=== PATIENT | male | born 1960 | race Caucasian/White ===

== ENCOUNTER 2021-03-05 00:43 | Inpatient (IN) | payer MEDICARE, OTHER ==
[~2021-03-05] VITALS: Ht 172.7 cm; Wt 58.1 kg
[2021-03-05] MEDS ORDERED: CLONIDINE HCL 0.1 MG TABLET PO ONE (01:15)
--- NOTE | 2021-03-05 01:15 | NUR ---
x-ray at bedside
--- NOTE | 2021-03-05 01:20 | NUR ---
Gave report to MHU nurse Geri
--- NOTE | 2021-03-05 01:22 | NUR ---
Patient is resting comfortably in bed with eyes closed, bed in lowest position.
[2021-03-05] MEDS ORDERED: RISP0.5T5 PO (01:26)
[2021-03-05] MEDS ORDERED: CLONIDINE HCL 0.1 MG TABLET ONE (01:35)
--- NOTE | 2021-03-05 02:20 | NUR ---
Pt. admitted to MHU , under care of Dr. Carlos Huff and Dr. Simeon Dx: psychosis 5150 Belongs List completed Pt stable, cooperative, no SOB or labored breathing, afebrile.
[2021-03-05] MEDS ORDERED: BLOOD SUGAR DIAGNOSTIC 1 EACH STRIP VI ONE (03:15)
[2021-03-05] MEDS ORDERED: MAGNESIUM HYDROXIDE 30 ML LIQUID UDC PO PRN (03:15)
--- NOTE | 2021-03-05 03:17 | NUR ---
GPS: Admitted to unit earlier a 60 yr.old male under the care of /ROGER Huff. Pt.is on a 72 hour hold for DTS/DTO. Pt.is homeless and apparently he was found wandering in other strangers homes,shouting and was agitated. Pt.is disheveled,confused,disorganized and delusional. Refuses to answer questions during admission process. Sedated but arousable to touch. VSS. Pt's advisement and pt's rights booklet given. Re-directed prn. Unit rules will be explained. Fall precautions observed.
[2021-03-05 04:04] LABS: *BILIRUBIN,URIN NEGATIVE (NEGATIVE); *BLOOD, URINE NEGATIVE (NEGATIVE); *CLARITY,URINE CLEAR (CLEAR); *COLOR,URINE YELLOW (YELLOW); *KETONES,URINE NEGATIVE (NEGATIVE); LEUKOCYTE ESTERASE ,URINE NEGATIVE (NEGATIVE); NITRITE, URINE NEGATIVE (NEGATIVE); UGLUCOSE NEGATIVE (NEGATIVE)
[2021-03-05 04:15] LABS: BACTERIA,URINE NONE SEEN /HPF (NONE SEEN); RBC,URINE 0-3 /HPF (0-3); SQUAMOUS EPITHELIAL CELL,UR NONE SEEN /HPF (NONE SEEN); WBC,URINE 0-3 /HPF (0-3)
[2021-03-05 06:23] VITALS: BP 135/96
[2021-03-05 07:30] VITALS: BP 124/85
--- NOTE | 2021-03-05 08:22 | NUR ---
Firearms Report: Semiconductor Wafers Etcher Stripper completed and submitted a [employer] firearms report for 5150 grave disability certification. A copy of report has been placed in patient chart.
[2021-03-05] MEDS: NICOTINE 14 MG/24HR PATCH TD SCH (09:18)
--- NOTE | 2021-03-05 09:51 | NUR ---
SW Initial Discharge Note: Patient appears to be homeless. Patient has one personal service representative listed Maria Isabel Jessie ([phone]). SW contacted and left a voicemail to collect collateral information. Patient may need SNF placement upon discharge. SW will continue to work with patient, family, and MD to ensure a safe and proper discharge plan.
--- NOTE | 2021-03-05 09:51 | NUR ---
MIGUE Collateral Contact: Patient has one contact centre supervisor listed Maria Isabel Roman ([phone]). SW contacted and left a voicemail to collect collateral information.
--- NOTE | 2021-03-05 09:52 | NUR ---
Brief Substance Abuse Intervention: Patient was provided with a brief substance abuse intervention fr alcohol use, cigarettes, marijuana, and crystal meth and referred to the following substance abuse programs: [facility] Self[facility]pl[facility] ([phone]); [facility] [address] [place] [address] ([phone]); [address] [address] ([phone]); [facility] ([phone]); [facility] ([phone]); [facility] ([phone]); [facility] ([phone]).
--- NOTE | 2021-03-05 11:46 | NUR ---
Treatment Plan: SW discussed treatment and discharge plan with the patient upon long term care social worker assessment. Patient demonstrated aggressive behavior and refused to sign treatment plan.
[2021-03-05] MEDS: risperiDONE 1 MG TABLET PO SCH ×2 (13:00→17:13)
[2021-03-05] MEDS ORDERED: OLANZAPINE 10 MG VIAL IM ONE (13:15)
[2021-03-05 16:35] VITALS: BP 102/68
[2021-03-05 20:09] VITALS: BP 130/65
--- NOTE | 2021-03-05 20:59 | NUR ---
resting in bed upon initial rounds. AAO x3-4 needs attended. VSS. No acute distress noted. ambulatory. Continent of bowel and bladder. No behavioral issues noted. No aggressive behavior or agitation noted. Will monitor patient.
[2021-03-06] MEDS: ZOLPIDEM 5 MG TABLET PO PRN ×2 (01:10→23:38)
[2021-03-06] MEDS: LORAZEPAM 1 MG TABLET PO PRN (01:59)
--- NOTE | 2021-03-06 06:26 | NUR ---
End of shift notes: Had 4 1/2 hrs of sleep. Was medicated earlier this am with Ativan plus ambien. No aggresive behavior so far.
[2021-03-06 07:30] VITALS: BP 150/94
[2021-03-06] MEDS: risperiDONE 1 MG TABLET PO SCH ×2 (08:48→16:37)
[2021-03-06] MEDS: NICOTINE 14 MG/24HR PATCH TD SCH (08:48)
--- NOTE | 2021-03-06 09:41 | NUR ---
WOUND CARE CONSULT: PT PRESENTS AMBULATORY AND CONTINENT WITH DRY ABRASIONS ON UPPER EXTREMITIES, PRESENT ON ADMISSION. NO DRAINAGE, TENDERNESS OR ERYTHEMA NOTED. WILL SEE PRN.
--- NOTE | 2021-03-06 14:32 | NUR ---
MIGUE Individual Therapy Note: SW met with patient today for brief individual counseling and addressed patient's presenting problem depressed mood. Patient presents with irritable mood and congruent affect. Patient is observed laying in bed and refusing to engage in conversation. Patient stated, "Go away". MIGUE was unable to conduct a meaningful intervention at this time as patient is not cooperative. will continue to remain available for patient for ongoing continuous support.
[2021-03-06 16:21] VITALS: BP 147/92
--- NOTE | 2021-03-06 17:01 | NUR ---
patient calm , patients verbalizing that he needs to go because he has a job to do, patient telling the tech writer that the MD already discharge him, patient re orient regarding the Hold patient been compliant with medication, monitored [id number] , no sign of distress
--- NOTE | 2021-03-07 05:38 | NUR ---
GPS: Remain calm and cooperative with meds and care. patient was unable to sleep. Ambien 5 mg po given for sleep last night.assisted with adl's. kept clean and dry. No aggressive behavior noted at this time. Resting in bed comfortably.
--- NOTE | 2021-03-07 05:50 | NUR ---
patient slept 6 hrs through the night.
[2021-03-07 07:02] LABS: BASOPHILS % (AUTO) 0.7 % (0.0-2.0); EOSINOPHILS % (AUTO) 1.1 % (0.0-7.0); HEMOGLOBIN 12.8 g/dL (12.5-16.3); LYMPHOCYTES # (AUTO) 0.9 K/uL (20.0-40.0); LYMPHOCYTES % (AUTO) 27.5 % (20.5-51.5); MEAN CORPUSCULAR HEMOGLOBIN 30.7 uug (23.8-33.4); MEAN CORPUSCULAR HGB CONC 33 g/dL (32.5-36.3); MEAN CORPUSCULAR VOLUME 93.3 fL (73.0-96.2); MONOCYTES # (AUTO) 0.2 K/uL (2.0-10.0); MONOCYTES % (AUTO) 7.1 % (0.0-11.0); NEUTROPHILS # (AUTO) 2.2 K/uL (1.8-8.9); NEUTROPHILS % (AUTO) 63.6 % (38.5-71.5); PLATELET COUNT (AUTO) 126 K/uL (152-348); RED BLOOD CELL COUNT(AUTO) 4.18 MIL/uL (4.06-5.63); WHITE BLOOD COUNT (AUTO) 3.4 K/uL (3.6-10.2)
[2021-03-07 07:09] LABS: BILIRUBIN,DIRECT 0.2 mg/dL (0.0-0.2); BILIRUBIN,TOTAL 0.5 mg/dL (0.2-1.0); TOTAL PROTEIN, SERUM 6.8 g/dL (6.4-8.2)
[2021-03-07 07:12] LABS: MAGNESIUM 1.9 mg/dL (1.8-2.4)
[2021-03-07 08:06] VITALS: BP 113/57
[2021-03-07] MEDS: risperiDONE 1 MG TABLET PO SCH ×2 (08:15→16:50)
[2021-03-07] MEDS: NICOTINE 14 MG/24HR PATCH TD SCH (08:16)
[2021-03-07] MEDS: LORAZEPAM 1 MG TABLET PO PRN (11:05)
[2021-03-07] MEDS: ENSURE ENLIVE (VAN) 240 ML LIQUID PO SCH ×2 (12:29→16:50)
--- NOTE | 2021-03-07 13:27 | NUR ---
Received patient AOx2-3, patient calm anc cooperative, redirectable, compliant with medication, assisted with ADL, denies SI and HI, patient verblizes that he needs to go to work, discuss with patient regarding his hold, patient isolative , monitored [id number] for safety and elopement risk, no sign of distress at this time
[2021-03-07 16:13] VITALS: BP 106/64
[2021-03-07 20:00] VITALS: BP 127/76
[2021-03-08] MEDS: ACETAMINOPHEN 325 MG TABLET PO PRN (02:51)
--- NOTE | 2021-03-08 03:00 | NUR ---
patient c/o genPain. tylenol 650 mg po given.
--- NOTE | 2021-03-08 04:00 | NUR ---
patient stated i am feeling better now.prn effective for pain.
--- NOTE | 2021-03-08 05:57 | NUR ---
GPS: Remain calm and cooperative with meds and care. patient was unable to sleep. patient was c/o gen: pain @ 0300 am tylenol 650 mg po given and effective. took shower this morning. slept 7 hrs through the night.. kept clean and dry. No aggressive behavior noted at this time. Resting in bed comfortably.
[2021-03-08 07:30] VITALS: BP 104/68
[2021-03-08] MEDS: risperiDONE 1 MG TABLET PO SCH ×2 (08:06→16:53)
[2021-03-08] MEDS: NICOTINE 14 MG/24HR PATCH TD SCH (08:06)
[2021-03-08] MEDS: ENSURE ENLIVE (VAN) 240 ML LIQUID PO SCH ×3 (08:07→16:53)
[2021-03-08] MEDS ORDERED: OLANZAPINE 10 MG VIAL IM ONE (09:45)
--- NOTE | 2021-03-08 09:45 | NUR ---
patient is confused and incoherent ,blocking unit door with blanket un able to follow direction and become agitated and aggressive yelling at nurse . Dr. Tejeda notified with Zyprexa 10 mg IM given.
[2021-03-08 15:07] VITALS: BP 129/75
[2021-03-08 20:03] VITALS: BP 126/72
--- NOTE | 2021-03-08 21:00 | NUR ---
RECEIVED PATIENT IN HIS ROOM IN BED. HE IS NOTED AWAKE A/O X 1. HE IS NOTED HYPERVERBAL, EASILY IRRITABLE, CONFRONTATIONAL AND ARGUMENTATIVE HE IS HARD TO REDIRECT. HE IS FIXED ON BEING DISCHARGE TODAY. HE THINKS IS DAY TIME. HE STATED, "THEY ARE WAITING FOR ME OUTSIDE, YOU CAN'T KEEP ME HERE, I NEED TO GO NOW". PATIENT NOTED WITH POOR INSIGHT THE JUDGMENT TO THE REASON FOR HIS ADMISSION TO MHU. HE REQUIRED REDIRECTION AND REASSURANCE. PO FLUIDS AND SNACKS WERE PROVIDED. V/S STABLE. PATIENT IS REASSURED FOR HIS SAFETY. SAFETY AND FALL PRECAUTION IN PLACE. PT IS AWOL RISK. CONTINUE TO MONITOR CLOSELY. PATIENT DENIED SI. HE IS ABLE TO VERBALLY CFS. CONTINUE Q15 MIN CHECKS.
[2021-03-08] MEDS: LORAZEPAM 1 MG TABLET PO PRN (23:26)
--- NOTE | 2021-03-08 23:30 | NUR ---
PATIENT NOTED IRRITABLE AND ARGUMENTATIVE, "I NEED TO LEAVE RIGHT NOW, WHY YOU ARE STILL KEEPING ME HERE?" PATIENT REQUIRED MULTIPLE REDIRECTION. ATIVAN 1MG PO PRN WAS GIVEN FOR ANXIETY AND AGITATION WILL CONTINUE TO MONITOR,
--- NOTE | 2021-03-09 00:30 | NUR ---
PATIENT NOTED SLEEPING IN HIS ROOM IN BED. WILL CONTINUE TO MONITOR.
[2021-03-09 07:30] VITALS: BP 106/60
[2021-03-09] MEDS: risperiDONE 1 MG TABLET PO SCH ×2 (08:09→17:20)
[2021-03-09] MEDS: NICOTINE 14 MG/24HR PATCH TD SCH (08:09)
[2021-03-09] MEDS: ENSURE ENLIVE (VAN) 240 ML LIQUID PO SCH ×3 (08:09→17:22)
[2021-03-09] MEDS: LORAZEPAM 1 MG TABLET PO PRN ×2 (10:01→22:20)
--- NOTE | 2021-03-09 10:05 | NUR ---
Pt banging on his table. Pt upset yelling at staff and states that he needs to go to work. Reorientation and re direction done. Explained to pt that he is in the hospital. Prior intervention of decreasing stimuli is non effective. Ativan given for agitation.
--- NOTE | 2021-03-09 11:00 | NUR ---
Pt sleeping noted resp @17 breathes /min. Will continue to monitor patient.
--- NOTE | 2021-03-09 12:00 | NUR ---
Pt awake eating his lunch. Pt alert to name and time. Reoriented pt to place explained to patient that he is here at [facility] MHU department. Pt denies any SI and HI. Noted wounds on bilteral elbows and skin tare on left hand. Pt refused for wounds to be cleansed. "Leave my wounds alone"
[2021-03-09 15:07] VITALS: BP 136/79
--- NOTE | 2021-03-09 20:00 | NUR ---
received patient in his room. he is noted sleeping in his bed but easily arousable. patient noted A/O x 1. calm upon approached. Mood is Labile, affect is blunted. He denied SI. and he is able to verbally CFS. Patient has no schedule HS medication. He is reassured for his safety. safety and fall precaution in place. will continue to monitor.
[2021-03-09 20:14] VITALS: BP 126/72
[2021-03-09] MEDS: MAG HYDROX/AL HYDROX/SIMETH 30 ML LIQUID UDC PO PRN (22:14)
--- NOTE | 2021-03-09 22:25 | NUR ---
patient approached the nursing station, he stated, "I feel boated, gas". Mylanta PO PRN was given. then he stated, "I feel I have bugs in my hand, I need antibiotics, look at my wounds?" patient was reassured that his wounds on his left hand and elbows are healing really well since his admission and no signs of infection are visible at this time. He also continue stating the he wants to go home (according to medical records, patient is homeless) He was given Ativan 1mg PO PRN for anxiety. PO fluids and snacks were offered. will continue to monitor.
--- NOTE | 2021-03-10 06:55 | NUR ---
patient slept for approx. 6.30 hrs through the night. he is noted less irritable. Will continue to monitor.
[2021-03-10 07:07] LABS: EOSINOPHILS % (AUTO) 1.2 % (0.0-7.0); HEMATOCRIT 37.8 % (36.7-47.1); HEMOGLOBIN 12.5 g/dL (12.5-16.3); LYMPHOCYTES % (AUTO) 32.2 % (20.5-51.5); MEAN CORPUSCULAR HEMOGLOBIN 31.4 uug (23.8-33.4); MEAN CORPUSCULAR HGB CONC 33 g/dL (32.5-36.3); MEAN CORPUSCULAR VOLUME 95.1 fL (73.0-96.2); MONOCYTES # (AUTO) 0.3 K/uL (2.0-10.0); MONOCYTES % (AUTO) 8.8 % (0.0-11.0); NEUTROPHILS # (AUTO) 1.7 K/uL (1.8-8.9); NEUTROPHILS % (AUTO) 56.8 % (38.5-71.5); PLATELET COUNT (AUTO) 114 K/uL (152-348); RED BLOOD CELL COUNT(AUTO) 3.98 MIL/uL (4.06-5.63); WHITE BLOOD COUNT (AUTO) 3.1 K/uL (3.6-10.2)
[2021-03-10 07:22] LABS: CARBON DIOXIDE 30 mmol/L (21-32); CHLORIDE 101 mmol/L (98-107); CREATININE 0.6 mg/dL (0.6-1.3); GLUCOSE 128 mg/dL (74-106); PHOSPHOROUS 3.4 mg/dL (2.5-4.9); POTASSIUM 4.3 mmol/L (3.5-5.1); UREA NITROGEN, BLOOD 17 mg/dL (7-18)
[2021-03-10 07:30] VITALS: BP 124/66
[2021-03-10] MEDS: ENSURE ENLIVE (VAN) 240 ML LIQUID PO SCH ×3 (08:32→17:04)
[2021-03-10] MEDS: NICOTINE 14 MG/24HR PATCH TD SCH (08:33)
[2021-03-10] MEDS: risperiDONE 1 MG TABLET PO SCH (08:33)
[2021-03-10] MEDS ORDERED: risperiDONE 1 MG TABLET PO ONE (09:00)
--- NOTE | 2021-03-10 09:00 | NUR ---
Pt alert and oriented x 4. Pt denies any c/o pain, no hallucinations noted, and denies any suicidal ideations. Pt compliant on taking his AM medications.
--- NOTE | 2021-03-10 09:23 | NUR ---
MIGUE SNF Referral: MIGUE faxed patient's referral packet to [facility] (F [phone]) for review and possible placement attention to [facility].
[2021-03-10] MEDS: NEOMY/BACITRAC/POLYMI OINT 28.35 GM TUBE TOP SCH ×2 (09:27→17:04)
--- NOTE | 2021-03-10 11:03 | NUR ---
Court Hearing: Patient's court hearing for 6740 was today and it was upheld for GD.
--- NOTE | 2021-03-10 11:54 | NUR ---
WOUND CARE CONSULT: PT PRESENTS WITH ELBOW ABRASIONS, PRESENT ON ADMISSION WHICH ARE NOW OPEN. CONCUR WITH CURRENT TREATMENT. DISCUSSED WITH NURSING STAFF. IN AGREEMENT WITH PLAN OF CARE. Addendum: 03/10/21 at 1633 by BETHANY RICO RN WOUND CARE NURSE ACCIDENTALLY USED MY USER NAME. Addendum: 03/11/21 at 0892 by AYUSH FIORE RN PLEASE DISREGARD ABOVE WOUND CARE NOTE WHICH WAS DONE BY AYUSH FIORE INTELLIGENCE CLERK (PRODUCTION GENERALIST) ON INCORRECT COMPUTER.
--- NOTE | 2021-03-10 15:30 | NUR ---
MIGUE Individual Therapy Note: SW met with patient today for brief individual counseling and address patient's presenting problem depressed mood. Patient appeared to be sleeping and did not want o be disturbed. SW encouraged patient to join daily activities in the dining room and join at least one group daily. SW will remain available for patient for ongoing and continued support.
[2021-03-10 15:45] VITALS: BP 117/75
[2021-03-10] MEDS: MAG HYDROX/AL HYDROX/SIMETH 30 ML LIQUID UDC PO PRN (17:04)
[2021-03-10] MEDS: risperiDONE 2 MG TABLET PO SCH (17:04)
--- NOTE | 2021-03-10 18:47 | NUR ---
Covered jayde elbow with band aid as instructed by Wound care nurse. Pt cooperative on taking his pills today.
[2021-03-10 20:04] VITALS: BP 124/74
--- NOTE | 2021-03-11 06:26 | NUR ---
Patient calm and cooperative. Slept about 7.45 hrs.
[2021-03-11 07:30] VITALS: BP 117/75
[2021-03-11] MEDS: risperiDONE 2 MG TABLET PO SCH ×2 (08:35→17:43)
[2021-03-11] MEDS: NICOTINE 14 MG/24HR PATCH TD SCH (08:35)
[2021-03-11] MEDS: NEOMY/BACITRAC/POLYMI OINT 28.35 GM TUBE TOP SCH ×2 (08:36→17:43)
--- NOTE | 2021-03-11 08:55 | NUR ---
WOUND CARE CONSULT (LATE ENTRY): PT SEEN ON 03/10/21 FOR BILATERAL ELBOW ABRASIONS WHICH WERE PRESENT ON ADMISSION AND ARE NOW OPEN. CONCUR WITH CURRENT TREATMENT. DISCUSSED WITH NURSING STAFF. Bernadine Arreola IN AGREEMENT WITH PLAN OF CARE.
[2021-03-11] MEDS: ENSURE ENLIVE (VAN) 240 ML LIQUID PO SCH ×3 (09:23→17:44)
[2021-03-11] MEDS: LORAZEPAM 1 MG TABLET PO PRN (13:15)
[2021-03-11] MEDS: ACETAMINOPHEN 325 MG TABLET PO PRN (13:56)
[2021-03-11] MEDS: MAG HYDROX/AL HYDROX/SIMETH 30 ML LIQUID UDC PO PRN (15:23)
[2021-03-11 16:02] VITALS: BP 95/44
[2021-03-11 20:04] VITALS: BP 120/70
--- NOTE | 2021-03-12 06:04 | NUR ---
GPS: Remain calm and cooperative with meds and care. slept 8.45 hrs through the night. Assisted with adl's. kept clean and dry. No aggressive behavior noted at this time. Resting in bed comfortably.
[2021-03-12 07:30] VITALS: BP 109/68
[2021-03-12] MEDS: ENSURE ENLIVE (VAN) 240 ML LIQUID PO SCH ×3 (09:45→17:47)
[2021-03-12] MEDS: NICOTINE 14 MG/24HR PATCH TD SCH (09:45)
[2021-03-12] MEDS: risperiDONE 2 MG TABLET PO SCH ×2 (09:45→17:46)
[2021-03-12] MEDS: NEOMY/BACITRAC/POLYMI OINT 28.35 GM TUBE TOP SCH ×2 (09:46→17:00)
[2021-03-12] MEDS: LORAZEPAM 1 MG TABLET PO PRN (10:38)
--- NOTE | 2021-03-12 13:21 | NUR ---
SW Note: This SW met with patient and discussed discharge plan. This SW offered nursing facility options, however, pt refused. Pt stated that he wants to be discharged to the streets and would want to go to a fpc. SW will coordinate this.
[2021-03-12] MEDS: BENZTROPINE MESYLATE 1 MG TABLET PO SCH ×2 (14:40→20:50)
[2021-03-12 16:17] VITALS: BP 129/77
[2021-03-12] MEDS: ACETAMINOPHEN 325 MG TABLET PO PRN (17:46)
[2021-03-12] MEDS: DIVALPROEX 250 MG TABLET.DR PO SCH (17:46)
[2021-03-12] MEDS: MAG HYDROX/AL HYDROX/SIMETH 30 ML LIQUID UDC PO PRN (17:53)
[2021-03-12 20:28] VITALS: BP 118/72
--- NOTE | 2021-03-13 05:39 | NUR ---
GPS: Remain calm and cooperative with meds and care. Assisted with adl's. kept clean and dry. No aggressive behavior noted at this time. took shower this morning.Resting in bed comfortably.
--- NOTE | 2021-03-13 06:10 | NUR ---
SLEPT 6 HRS THROUGH THE NIGHT.
[2021-03-13 07:30] VITALS: BP 137/77
[2021-03-13] MEDS: DIVALPROEX 250 MG TABLET.DR PO SCH ×3 (08:27→16:08)
[2021-03-13] MEDS: risperiDONE 2 MG TABLET PO SCH ×2 (08:27→16:08)
[2021-03-13] MEDS: BENZTROPINE MESYLATE 1 MG TABLET PO SCH ×2 (08:27→16:08)
[2021-03-13] MEDS: ENSURE ENLIVE (VAN) 240 ML LIQUID PO SCH ×3 (08:27→16:09)
[2021-03-13] MEDS: NICOTINE 14 MG/24HR PATCH TD SCH (08:27)
[2021-03-13] MEDS: NEOMY/BACITRAC/POLYMI OINT 28.35 GM TUBE TOP SCH ×2 (08:28→16:10)
[2021-03-13] MEDS: MAG HYDROX/AL HYDROX/SIMETH 30 ML LIQUID UDC PO PRN (12:46)
[2021-03-13] MEDS: ACETAMINOPHEN 325 MG TABLET PO PRN (15:37)
[2021-03-13] MEDS: LORAZEPAM 1 MG TABLET PO PRN (16:33)
--- NOTE | 2021-03-13 17:32 | NUR ---
RECEIVED PATIENT CALM COOPERATIVE, DENIES SI AND HI, PATIENT INCREASED IN APPETITE , COMPLIANT WITH MEDICATION, ENGAGE IN MEANINGFUL CONVERSATION, PATIENT DISCUSS PLAN ON HIS DISCHARGE, MONITORED [id number] NO SIGN OF DISTRESS
[2021-03-13 17:52] VITALS: BP 120/71
[2021-03-13 20:25] VITALS: BP 114/68
--- NOTE | 2021-03-13 20:30 | NUR ---
received patient in his room in bed. he is noted sleeping but easily arousable. patient noted a/o x 3. he is calm and pleasant upon approached. he is noted less irritable less anxious. able to maintain good eye contact. able to make his needs known. he is able to accept care. he denied SI and he is able to CFS. V/S stable. patient was given snacks and PO fluids. he is eating 100% of all his meals. patient is reassured for his safety. safety and fall precaution in place. will continue to monitor.
--- NOTE | 2021-03-14 06:13 | NUR ---
Patient slept for approx 7.00 hrs through the night. pt is able to comply with medication regiment diet and plan of care. will continue to monitor.
[2021-03-14 08:24] VITALS: BP 116/71
[2021-03-14] MEDS: DIVALPROEX 250 MG TABLET.DR PO SCH ×3 (08:39→16:22)
[2021-03-14] MEDS: risperiDONE 2 MG TABLET PO SCH ×2 (08:39→16:22)
[2021-03-14] MEDS: BENZTROPINE MESYLATE 1 MG TABLET PO SCH ×2 (08:39→16:23)
[2021-03-14] MEDS: ENSURE ENLIVE (VAN) 240 ML LIQUID PO SCH ×3 (08:46→17:31)
[2021-03-14] MEDS: NICOTINE 14 MG/24HR PATCH TD SCH (08:46)
[2021-03-14] MEDS: NEOMY/BACITRAC/POLYMI OINT 28.35 GM TUBE TOP SCH ×2 (08:55→16:28)
[2021-03-14] MEDS: ACETAMINOPHEN 325 MG TABLET PO PRN (14:26)
[2021-03-14 17:17] VITALS: BP 121/65
[2021-03-14] MEDS: CLONAZEPAM 0.5 MG TABLET PO PRN (17:42)
--- NOTE | 2021-03-14 18:39 | NUR ---
Patient calm and cooperative. No signs of acute distress. Denies SI/ HI. Denies pain/ discomfort. Patient compliant with medication and care. Frequent patient rounding for safety. Needs met. Safety measures provided. Will endorse to incoming shift for continuity of care.
--- NOTE | 2021-03-14 20:30 | NUR ---
RECEIVED PATIENT IN HIS ROOM IN BED. HE IS NOTED AWAKE A/O X 2. HE IS NOTED CALM AND PLEASANT UPON APPROACHED. PATIENT ABLE TO VERBALIZED FEELINGS AND ABLE TO MAKE HIS NEEDS KNOWN. PATIENT ABLE TO COMPLY WITH MEDICATION REGIMENT DIET AND PLAN OF CARE.
--- NOTE | 2021-03-14 20:35 | NUR ---
V/S STABLE. PATIENT IS REASSURED FOR HIS SAFETY. SAFETY AND FALL PRECAUTION IN PLACE. WILL CONTINUE TO MONITOR.
[2021-03-14 21:59] VITALS: BP 100/57
[2021-03-14] MEDS: MAG HYDROX/AL HYDROX/SIMETH 30 ML LIQUID UDC PO PRN (23:19)
[2021-03-14] MEDS: ZOLPIDEM 5 MG TABLET PO PRN (23:19)
[2021-03-15 07:30] VITALS: BP 121/80
[2021-03-15] MEDS: BENZTROPINE MESYLATE 1 MG TABLET PO SCH ×2 (09:04→16:34)
[2021-03-15] MEDS: DIVALPROEX 250 MG TABLET.DR PO SCH ×3 (09:04→16:33)
[2021-03-15] MEDS: NICOTINE 14 MG/24HR PATCH TD SCH (09:05)
[2021-03-15] MEDS: ENSURE ENLIVE (VAN) 240 ML LIQUID PO SCH ×3 (09:05→17:34)
[2021-03-15] MEDS: NEOMY/BACITRAC/POLYMI OINT 28.35 GM TUBE TOP SCH ×2 (09:05→16:34)
[2021-03-15] MEDS: risperiDONE 2 MG TABLET PO SCH ×2 (09:05→16:33)
[2021-03-15] MEDS: CLONAZEPAM 0.5 MG TABLET PO PRN (14:39)
[2021-03-15 16:00] VITALS: BP 130/80
--- NOTE | 2021-03-15 18:55 | NUR ---
Patient awake in bed. Calm and cooperative. No signs of acute distress. Vital signs stable. Compliant with medications and care. Able to make needs known. Shows increased oral intake. Frequent patient rounding for safety. Will endorse to incoming shift for continuity of care.
[2021-03-15 20:08] VITALS: BP 128/82
--- NOTE | 2021-03-15 20:30 | NUR ---
RECEIVED PATIENT IN HIS ROOM IN BED SLEEPING BUT EASILY AROUSABLE. HE IS NOTED A/O X 2 CALM AND PLEASANT UPON APPROACHED. PATIENT ABLE TO VERBALIZED FEELING AND ABLE TO MAKE HIS NEEDS KNOWN. V/S STABLE. PO FLUIDS AND SNACKS WERE PROVIDE. PATIENT IS REASSURED FOR HIS SAFETY. SAFETY AND FALL PRECAUTION IN PLACE. WILL CONTINUE TO MONITOR.
[2021-03-15] MEDS: ZOLPIDEM 5 MG TABLET PO PRN (23:24)
[2021-03-16 07:30] VITALS: BP 138/78
[2021-03-16] MEDS: BENZTROPINE MESYLATE 1 MG TABLET PO SCH ×2 (09:17→16:46)
[2021-03-16] MEDS: NICOTINE 14 MG/24HR PATCH TD SCH (09:17)
[2021-03-16] MEDS: risperiDONE 2 MG TABLET PO SCH ×2 (09:17→16:46)
[2021-03-16] MEDS: DIVALPROEX 250 MG TABLET.DR PO SCH ×3 (09:17→16:46)
[2021-03-16] MEDS: ENSURE ENLIVE (VAN) 240 ML LIQUID PO SCH ×3 (09:18→16:46)
[2021-03-16] MEDS: NEOMY/BACITRAC/POLYMI OINT 28.35 GM TUBE TOP SCH ×2 (09:18→16:47)
[2021-03-16] MEDS: CLONAZEPAM 0.5 MG TABLET PO PRN ×2 (13:38→20:47)
[2021-03-16 15:35] VITALS: BP 141/71
[2021-03-16 20:12] VITALS: BP 117/73
--- NOTE | 2021-03-17 05:36 | NUR ---
1930 ASSUMED CARE OF PATIENT. PATIENT ALERT AND ORIENTED TIMES FOUR. VITAL SIGNS STABLE. PATIENT DENIES PAIN AT THIS TIME. 2029 LAB CALLED AND PATIENT COVID-19 NEGATIVE. 2046 PATIENT GIVEN KLONOPIN FOR ANXIETY PER ORDERS. 0530 PATIENT IN BED RESTING WITH NO SIGNS OF SYMPTOMS OF DISTRESS OR DISCOMFORT. WILL CONTINUE TO MONITOR THROUGHOUT SHIFT.
[2021-03-17 07:30] VITALS: BP 105/56
--- NOTE | 2021-03-17 08:00 | NUR ---
pt is in no acute distress. No SOB noted. Pt compliant with taking his medications. Pt denies SI and denies hallucinations.
--- NOTE | 2021-03-17 08:18 | NUR ---
SW Discharge Note: Patient will be discharged to senior living facility to [facility] [address] [place] [address]; ) via ambulance arranged at 1PM. Stud Beef Cattle Farmer spoke with LÓPEZ, pinmaker at [facility]; ([phone]), who stated patient will be accepted at facility today. Patient does not have any family members at this time. Patient is alert and oriented x3, and is not able to plan for self-care at this time, but is willing to accept care provided for him at the facility. Patient denies any suicidal or homicidal ideation. Patient is aware and agreeable with discharge plans. Patient will continue to follow-up with her (Psychiatrist) Dr. Simeon and (Flight Operations Inspector) Dr. Cabrera at [facility] [address] [place] [address]; ). Patient was provided referrals to the following substance abuse programs for substance abuse (alcohol): [facility] Substance [facility] Self-helpline ([phone]); [facility] [address] [place] [address] ([phone]); [address] [address] ([phone]); [facility] [phone]); [facility] ([phone]); [facility] ([phone]); [facility] ([phone]). Patient presents with euthymic mood and congruent affect. Patient signed the homeless waiver upon discharge and a copy was placed in the chart. Homeless resources were provided and include [address] information line for shelters and homeless resources. A copy of all resources given to patient was also placed in the chart. Patient presented with euthymic mood and congruent affect
[2021-03-17] MEDS: BENZTROPINE MESYLATE 1 MG TABLET PO SCH (09:12)
[2021-03-17] MEDS: NEOMY/BACITRAC/POLYMI OINT 28.35 GM TUBE TOP SCH (09:12)
[2021-03-17] MEDS: DIVALPROEX 250 MG TABLET.DR PO SCH ×2 (09:12→13:12)
[2021-03-17] MEDS: NICOTINE 14 MG/24HR PATCH TD SCH (09:12)
[2021-03-17] MEDS: risperiDONE 2 MG TABLET PO SCH (09:12)
[2021-03-17] MEDS: ENSURE ENLIVE (VAN) 240 ML LIQUID PO SCH ×2 (09:12→13:10)
--- NOTE | 2021-03-17 12:00 | NUR ---
Discharge instructions given to patient. Pt verbalized understanding. Report given to KENIA from [facility].
--- NOTE | 2021-03-17 13:15 | NUR ---
Pt refused to have his closed scab wounds pictures taken.
[2021-03-17 15:19] VITALS: BP 103/56
--- NOTE | 2021-03-17 15:30 | NUR ---
Ambulance here to pickle pumper patient. Pt is in no acute distress. No sob noted upon discharge.
[2021-03-18] MEDS ORDERED: LEVOTHYROXINE SODIUM 25 MCG TABLET PO SCH (07:00)
== END 2021-03-17 15:30 | DRG 885 ==
LOC: ER 00:54 → GPS 01:59
PROVIDERS: ADMIT Psychiatry & Neurology Psychiatry
DX: F20.0 Paranoid schizophrenia (principal); E43 Unspecified severe protein-calorie malnutrition; B19.20 Unspecified viral hepatitis C without hepatic coma; Z68.1 Body mass index [BMI] 19.9 or less, adult; Z59.0 Homelessness; F17.210 Nicotine dependence, cigarettes, uncomplicated; Z73.6 Limitation of activities due to disability; Z20.822 Contact with and (suspected) exposure to COVID-19; E88.09 Other disorders of plasma-protein metabolism, not elsewhere classified; S60.512A Abrasion of left hand, initial encounter; S50.312A Abrasion of left elbow, initial encounter; S50.311A Abrasion of right elbow, initial encounter; X58.XXXA Exposure to other specified factors, initial encounter; Y93.9 Activity, unspecified; Y92.89 Other specified places as the place of occurrence of the external cause; F15.11 Other stimulant abuse, in remission
CPT/HCPCS: 36415; 71045; 83735; 84100; 84443; 85025; 87086; 93005; A4663; J2358; J3490